=== PATIENT | female | born 1990 | race African-American/Black ===

== ENCOUNTER 2017-10-04 07:44 | Emergency (ER) | payer BC ==
[~2017-10-04] VITALS: Ht 167.6 cm; Wt 86.4 kg
[2017-10-04 07:47] VITALS: BP 124/78
[2017-10-04 08:33] LABS: APPEARANCE CLOUDY ((CLEAR)); BILIRUBIN NEGATIVE; BLOOD SMALL; COLOR YELLOW ((YELLOW)); GLUCOSE (STRIP) NEGATIVE; KETONES NEGATIVE; LEUKOCYTES MODERATE; NITRITE POSITIVE; PROTEIN (STRIP) NEGATIVE; SPECIFIC GRAVITY 1.018 (1.000-1.030)
[2017-10-04 08:35] LABS: HEMATOCRIT 33.4 % (36.0-46.0); HEMOGLOBIN 11.3 G/DL (11.9-15.5); MCH 29.8 PG (29.0-34.0); MCHC 33.8 G/DL (30.0-36.0); PLATELET COUNT 263 K/uL (156-360); RBC DIS.WIDTH-CV 12.2 % (11.8-14.6); RBC DIS.WIDTH-SD 39.8 % (39-53); RED BLOOD COUNT 3.79 M/uL (3.80-5.20); WHITE BLOOD COUNT 9.7 K/uL (4.1-10.2)
[2017-10-04 08:37] LABS: MCV 88.1 FL (83-99)
[2017-10-04 08:44] LABS: CHLORIDE 101 mEq/L (99-109); POTASSIUM 3.4 mEq/L (3.7-5.4); SODIUM 133 mEq/L (136-147)
[2017-10-04 08:45] LABS: GLUCOSE 121 mg/dL (70-99)
[2017-10-04 08:49] LABS: CREATININE 0.7 mg/dL (0.6-1.3)
[2017-10-04 08:50] LABS: GFR ESTIMATE (CALCULATED) > 59 mL/min/; UREA NITROGEN (BUN) 6 mg/dL (9-23)
[2017-10-04 08:50] LABS: BACTERIA RARE /HPF; EPITHELIAL CELLS RARE /HPF; MUCUS TRACE /LPF; RED BLOOD CELLS 0-5 /HPF (0-5); UCUL ADDED? NO; WHITE BLOOD CELLS 0-5 /HPF (0-5)
== END 2017-10-04 10:42 | disposition left against medical advice (07) ==
LOC: EME 07:44
DX: R51 Headache (principal); R50.9 Fever, unspecified; Z53.21 Procedure and treatment not carried out due to patient leaving prior to being seen by health care provider
CPT/HCPCS: 80048; 81003; 85027

== ENCOUNTER 2018-04-09 13:05 | Outpatient (CLI) | payer BC, OTHER ==
[~2018-04-09] VITALS: Ht 162.6 cm; Wt 90.5 kg
[2018-04-09 13:45] VITALS: BP 116/65
[2018-04-09 13:56] VITALS: BP 114/71
[2018-04-09 14:51] LABS: SOURCE SWAB
[2018-04-09] MEDS ORDERED: PRENATAL TABLE1 EAC3 PO (14:56)
[2018-04-09] MEDS ORDERED: IRON325 M1 PO (14:57)
[2018-04-09 15:15] LABS: APPEARANCE CLOUDY ((CLEAR)); BILIRUBIN NEGATIVE; BLOOD NEGATIVE; COLOR YELLOW ((YELLOW)); GLUCOSE (STRIP) NEGATIVE; KETONES NEGATIVE; LEUKOCYTES TRACE; NITRITE NEGATIVE; PROTEIN (STRIP) NEGATIVE; SPECIFIC GRAVITY 1.017 (1.000-1.030); UROBILINOGEN 0.2 MG/DL (0.2-1.0)
[2018-04-09 15:39] VITALS: BP 112/72
[2018-04-09 16:21] LABS: BACTERIA 2+ /HPF; EPITHELIAL CELLS 3+ /HPF; MUCUS TRACE /LPF; RED BLOOD CELLS 0-5 /HPF (0-5); UCUL ADDED? YES
[2018-04-09] MEDS ORDERED: METOCLOPRAMIDE10 MG PO (18:43)
[2018-04-09 21:24] LABS: CANDIDA DNA PROBE NEGATIVE; GARDNERELLA DNA PROBE NEGATIVE; TRICHOMONAS DNA PROBE NEGATIVE
== END 2018-04-09 18:42 | disposition home or self-care (01) ==
LOC: LDRP-OP 13:05 → 2WEST 13:06 → LDRP-OP 06-15 18:59
PROVIDERS: Advanced Practice Midwife; Obstetrics & Gynecology Obstetrics
DX: O26.893 Other specified pregnancy related conditions, third trimester (principal); R51 Headache; Z3A.34 34 weeks gestation of pregnancy
CPT/HCPCS: 59025; 81003; 87086; 87480; 87491; 87510; 87591; 87660; G0378

== ENCOUNTER 2018-05-16 08:41 | Outpatient (CLI) | payer OTHER ==
[~2018-05-16 08:41] MED LIST: IRON325 M1 PO; METOCLOPRAMIDE10 MG PO; PRENATAL TABLE1 EAC3 PO
[2018-05-16 09:09] VITALS: BP 109/71
== END 2018-05-16 10:11 | disposition home or self-care (01) ==
LOC: LDRP-OP 08:41 → 2WEST 08:42 → LDRP-OP 06-15 18:53
DX: O47.1 False labor at or after 37 completed weeks of gestation (principal); Z3A.40 40 weeks gestation of pregnancy; O99.013 Anemia complicating pregnancy, third trimester; D64.9 Anemia, unspecified
CPT/HCPCS: 59025; G0378

== ENCOUNTER 2018-05-18 04:34 | Inpatient (IN) | payer OTHER ==
[~2018-05-18] VITALS: Ht 162.6 cm; Wt 95.0 kg
[2018-05-18 05:09] VITALS: BP 129/66
[2018-05-18 05:24] VITALS: BP 113/68
[2018-05-18 05:39] VITALS: BP 112/66
[2018-05-18 05:54] VITALS: BP 118/71
[2018-05-18 06:11] LABS: HEMATOCRIT 33.3 % (36.0-46.0); HEMOGLOBIN 11.3 G/DL (11.9-15.5); MCH 30.2 PG (29.0-34.0); MCHC 33.9 G/DL (30.0-36.0); RBC DIS.WIDTH-CV 13.3 % (11.8-14.6); RBC DIS.WIDTH-SD 43.9 % (39-53); RED BLOOD COUNT 3.74 M/uL (3.80-5.20); WHITE BLOOD COUNT 10.7 K/uL (4.1-10.2)
[2018-05-18 06:51] LABS: BASOPHIL (%) 0.2 % (0-1); EOSINOPHIL (%) 0.1 % (0-5); IMMATURE GRANULOCYTE (%) 0.7 % (0.0-0.7); LYMPHOCYTE (%) 10.4 % (15-42); LYMPHOCYTE COUNT 1.1 K/uL (1.0-2.8); MONOCYTE (%) 9.2 % (3-12); NEUTROPHIL (%) 79.4 % (45-76); NEUTROPHIL COUNT 8.5 K/uL (1.8-6.4); PLAT.SUFFICIENCY ADEQUATE; PLATELET COUNT 215 K/uL (156-360)
[2018-05-18] MEDS ORDERED: ACETAMINOPHEN500 MG PO (07:07)
[2018-05-18 07:31] LABS: AMPHETAMINE NEGATIVE (500 ng/mL); BARBITURATES PRESUMPTIVE POSITIVE (200 ng/mL); BENZODIAZEPINES NEGATIVE (150 ng/mL); BUPRENORPHINE NEGATIVE (10 ng/mL); COCAINE NEGATIVE (150 ng/mL); METHADONE NEGATIVE (200 ng/mL); METHAMPHETAMINE NEGATIVE (500 ng/mL); OPIATES (MORPHINE) NEGATIVE (100 ng/mL); OXYCODONE NEGATIVE (100 ng/mL); PHENCYCLIDINE NEGATIVE (25 ng/mL); PROPOXYPHENE NEGATIVE (300 ng/mL); THC CANNABINOIDS NEGATIVE (50 ng/mL); TRICYCLIC ANTIDEPRESSANTS NEGATIVE (300 ng/mL)
[2018-05-18 08:24] VITALS: BP 116/56
[2018-05-18 23:10] VITALS: BP 109/66
[2018-05-19 06:19] LABS: BASOPHIL (%) 0.3 % (0-1); EOSINOPHIL (%) 0.8 % (0-5); EOSINOPHIL COUNT 0.1 K/uL (0-0.3); HEMATOCRIT 34.1 % (36.0-46.0); IMMATURE GRANULOCYTE (%) 0.8 % (0.0-0.7); LYMPHOCYTE (%) 17.2 % (15-42); LYMPHOCYTE COUNT 1.8 K/uL (1.0-2.8); MCH 29.9 PG (29.0-34.0); MCHC 32.3 G/DL (30.0-36.0); MCV 92.7 FL (83-99); MONOCYTE (%) 9.7 % (3-12); NEUTROPHIL (%) 71.2 % (45-76); NEUTROPHIL COUNT 7.4 K/uL (1.8-6.4); NRBC (%) 0.2 /100 WBC (0-0); PLATELET COUNT 202 K/uL (156-360); RBC DIS.WIDTH-CV 13.7 % (11.8-14.6); RBC DIS.WIDTH-SD 46.5 % (39-53); RED BLOOD COUNT 3.68 M/uL (3.80-5.20); WHITE BLOOD COUNT 10.4 K/uL (4.1-10.2)
[2018-05-19 20:10] LABS: BASOPHIL (%) 0.3 % (0-1); EOSINOPHIL COUNT 0.1 K/uL (0-0.3); HEMATOCRIT 30.2 % (36.0-46.0); HEMOGLOBIN 10.4 G/DL (11.9-15.5); IMMATURE GRANULOCYTE (%) 0.7 % (0.0-0.7); LYMPHOCYTE (%) 9.3 % (15-42); LYMPHOCYTE COUNT 1.1 K/uL (1.0-2.8); MCH 31.1 PG (29.0-34.0); MCHC 34.4 G/DL (30.0-36.0); MCV 90.4 FL (83-99); MONOCYTE (%) 7.1 % (3-12); MONOCYTE COUNT 0.8 K/uL (0-0.8); NEUTROPHIL (%) 81.6 % (45-76); NEUTROPHIL COUNT 9.4 K/uL (1.8-6.4); PLATELET COUNT 223 K/uL (156-360); RBC DIS.WIDTH-CV 13.4 % (11.8-14.6); RED BLOOD COUNT 3.34 M/uL (3.80-5.20); WHITE BLOOD COUNT 11.5 K/uL (4.1-10.2)
[2018-05-19 22:31] LABS: BACTERIA NONE SEEN /HPF; EPITHELIAL CELLS 1+ /HPF; MUCUS NONE SEEN /LPF; RED BLOOD CELLS 0-5 /HPF (0-5); WHITE BLOOD CELLS 0-5 /HPF (0-5)
[2018-05-20 11:36] VITALS: BP 118/65
[2018-05-21] VITALS (8 sets, daily range): BP systolic 97–129; BP diastolic 55–80
[2018-05-21 06:35] LABS: BASOPHIL (%) 0.2 % (0-1); EOSINOPHIL (%) 0.9 % (0-5); EOSINOPHIL COUNT 0.1 K/uL (0-0.3); HEMATOCRIT 31.5 % (36.0-46.0); HEMOGLOBIN 10.6 G/DL (11.9-15.5); IMMATURE GRANULOCYTE (%) 0.7 % (0.0-0.7); LYMPHOCYTE (%) 12.1 % (15-42); LYMPHOCYTE COUNT 1.6 K/uL (1.0-2.8); MCH 30.4 PG (29.0-34.0); MCHC 33.7 G/DL (30.0-36.0); MCV 90.3 FL (83-99); MONOCYTE (%) 7.5 % (3-12); NEUTROPHIL (%) 78.6 % (45-76); NEUTROPHIL COUNT 10.2 K/uL (1.8-6.4); PLATELET COUNT 245 K/uL (156-360); RBC DIS.WIDTH-CV 13.5 % (11.8-14.6); RBC DIS.WIDTH-SD 44.6 % (39-53); RED BLOOD COUNT 3.49 M/uL (3.80-5.20)
[2018-05-21 07:11] LABS: ALBUMIN 2.6 G/DL (3.2-4.8); ALKALINE PHOSPHATASE 133 IU/L (3-129); ALT (GPT) 21 IU/L (3-49); AST (GOT) 33 IU/L (2-34); CHLORIDE 108 MEQ/L (99-109); CREATININE 0.5 MG/DL (0.6-1.3); GFR ESTIMATE (CALCULATED) > 59 mL/min/; GLUCOSE 84 mg/dL (70-99); POTASSIUM 3.8 MEQ/L (3.7-5.4); SODIUM 140 MEQ/L (136-147); TOTAL BILIRUBIN 0.4 MG/DL (0.0-1.0); TOTAL PROTEIN 5.6 G/DL (6.4-8.3); UREA NITROGEN (BUN) 7 mg/dL (9-23)
[2018-05-22 02:48] VITALS: BP 104/56
[2018-05-22 09:42] LABS: BASOPHIL (%) 0.2 % (0-1); EOSINOPHIL (%) 1.5 % (0-5); EOSINOPHIL COUNT 0.1 K/uL (0-0.3); HEMATOCRIT 26.1 % (36.0-46.0); HEMOGLOBIN 8.7 G/DL (11.9-15.5); IMMATURE GRANULOCYTE (%) 0.4 % (0.0-0.7); LYMPHOCYTE (%) 15.7 % (15-42); LYMPHOCYTE COUNT 1.5 K/uL (1.0-2.8); MCH 30.2 PG (29.0-34.0); MCHC 33.3 G/DL (30.0-36.0); MCV 90.6 FL (83-99); MONOCYTE (%) 8.3 % (3-12); MONOCYTE COUNT 0.8 K/uL (0-0.8); NEUTROPHIL (%) 73.9 % (45-76); NEUTROPHIL COUNT 6.9 K/uL (1.8-6.4); PLATELET COUNT 258 K/uL (156-360); RBC DIS.WIDTH-CV 13.6 % (11.8-14.6); RBC DIS.WIDTH-SD 45.4 % (39-53); RED BLOOD COUNT 2.88 M/uL (3.80-5.20); WHITE BLOOD COUNT 9.3 K/uL (4.1-10.2)
[2018-05-22] MEDS ORDERED: PUMP IN STYLE1 EACH MC (11:04)
[2018-05-23 07:24] VITALS: BP 116/73
[2018-05-23] MEDS ORDERED: IBUPROFEN800 MG PO (10:12)
[2018-05-23 10:45] VITALS: BP 121/74
== END 2018-05-23 16:00 | disposition home or self-care (01) | DRG 774 ==
LOC: LDRP-OP 04:34 → 2WEST 04:35 → LDRP-OP 06-15 10:15
PROVIDERS: Advanced Practice Midwife; Obstetrics & Gynecology
DX: O48.0 Post-term pregnancy (principal); O75.3 Other infection during labor; O99.354 Diseases of the nervous system complicating childbirth; O99.214 Obesity complicating childbirth; E66.9 Obesity, unspecified; Z37.0 Single live birth; Z3A.40 40 weeks gestation of pregnancy; O99.02 Anemia complicating childbirth; D50.9 Iron deficiency anemia, unspecified; O99.62 Diseases of the digestive system complicating childbirth; K21.9 Gastro-esophageal reflux disease without esophagitis; O77.0 Labor and delivery complicated by meconium in amniotic fluid; O70.0 First degree perineal laceration during delivery; G43.909 Migraine, unspecified, not intractable, without status migrainosus; G47.00 Insomnia, unspecified; N64.4 Mastodynia; Z68.35 Body mass index [BMI] 35.0-35.9, adult
CPT/HCPCS: 59025; 71046; 80053; 80170; 81003; 81015; 84999; 85025; 85025 91; 87040; 87086; 93005; G0378; J0290; J1580; J2590; J7050; J7120